=== PATIENT | female | born 1985 | race Two or more races ===

== ENCOUNTER 2019-03-06 08:27 | Emergency (ER) | payer MEDICAID, OTHER ==
[~2019-03-06] VITALS: Ht 162.6 cm; Wt 75.7 kg
[2019-03-06 08:57] VITALS: BP 137/90
[2019-03-06] MEDS ORDERED: IBUPROFEN 600 MG TAB PO ONE ×2 (09:03→09:15)
== END 2019-03-06 10:56 | disposition home or self-care (01) ==
LOC: ER 08:27
DX: S92.355A Nondisplaced fracture of fifth metatarsal bone, left foot, initial encounter for closed fracture (principal); I10 Essential (primary) hypertension; F17.210 Nicotine dependence, cigarettes, uncomplicated; Z98.51 Tubal ligation status; X50.1XXA Overexertion from prolonged static or awkward postures, initial encounter; Y93.01 Activity, walking, marching and hiking; Y92.89 Other specified places as the place of occurrence of the external cause; Y99.8 Other external cause status
CPT/HCPCS: 29515; 73630